=== PATIENT | male | born 1985 | race African-American/Black ===

== ENCOUNTER 2018-03-19 21:33 | Emergency (ER) | END 2018-03-20 02:25 | disposition home or self-care (01) ==

== ENCOUNTER 2018-04-08 21:29 | Emergency (ER) | END 2018-04-08 23:50 | disposition home or self-care (01) ==

== ENCOUNTER 2018-08-05 09:28 | Emergency (ER) | END 2018-08-05 12:07 | disposition home or self-care (01) ==